=== PATIENT | female | born 1995 | race African-American/Black ===

== ENCOUNTER 2018-07-27 03:05 | Emergency (ER) | payer OTHER ==
[~2018-07-27] VITALS: Ht 162.6 cm; Wt 130.3 kg
[2018-07-27 03:14] VITALS: BP 111/62; PULSE 60; RESP 18; Ht 162.6 cm; Wt 130.3 kg
[2018-07-27] MEDS ORDERED: ERYT1OIN6 RIGHT EYE (05:12)
[2018-07-28] MEDS ORDERED: GENT5DRO28 RIGHT EYE (06:19)
--- NOTE | 2018-07-28 22:53 | ERD ---
ER Documentation Chief Complaint Chief Complaint swelling right upper eyelid, states possible foreign body x 2 days HPI Patient is a 22-year-old female presents to the ER for concerns of right upper eyelid swelling x 2 days. Patient states she feels as if something flew into her eye 2 days ago. Patient denies any visual changes. Patient denies any contact lens use. Patient has no fevers or chills. ROS All systems reviewed and are negative except as per history of present illness. Medications Home Meds Active Scripts Gentamicin Sulfate* (Gentamicin Sulfate* Ophth) 0.3% - 5 Ml Drops, 1 DROP RIGHT EYE Q4 for 7 Days, EA Prov:DAVID CONROY 07/28/18 Erythromycin Base (Erythromycin) 1 Gm Oint...g., 1 APPLIC RIGHT EYE QID for 7 Days Prov:KATHY JACK PA-C 07/27/18 Allergies Allergies: Coded Allergies: No Known Drug Allergies (Verified Allergy, Unknown, 07/27/18) PMhx/Soc Medical and Surgical Hx: pt denies Medical Hx History of Surgery: Yes (C SEC X2 ) Hx Alcohol Use: No Hx Substance Use: Yes (MARIJUANA) Hx Tobacco Use: Yes Smoking Status: Current every day smoker FmHx Family History: No diabetes Physical Exam Vitals Vital Signs Date Temp Pulse Resp B/P (MAP) Pulse Ox O2 O2 Flow FiO2 Time Delivery Rate 07/27/18 97.2 60 18 111/62 100 03:14 (78) Physical Exam GENERAL: Well-developed, well-nourished female. Appears in no acute distress. HEAD: Normocephalic, atraumatic. EYES: Pupils are equally reactive bilaterally. EOMs grossly intact. No conjunctival erythema noted bilaterally. Right upper eyelid noted to have stye which is tender to touch. No surrounding erythema or swelling. No proptosis. No pain with EOMs. ENT: Moist mucous membranes. No uvula deviation. No kissing tonsils. NECK: Supple. No meningismus. Normal range of motion of the neck. LUNG: Clear to auscultation bilaterally. No rhonchi, wheezing, rales or coarse breath sounds. HEART: Regular rate and rhythm. No murmurs, rubs or gallops. EXTREMITIES: Equal pulses bilaterally. No peripheral clubbing, cyanosis or edema. No unilateral leg swelling. NEUROLOGIC: Alert and oriented. Moving all four extremities without any difficulty. Normal speech. Steady gait. SKIN: Normal color. Warm and dry. No rashes or lesions. Procedures/MDM MEDICAL DECISION MAKING: This is a 22-year-old female presents the ER for concerns of right upper eyelid swelling x2 days.. Vital signs were reviewed. Patient was afebrile. Physical exam findings are concerning for a stye. Patient will be discharged home with a prescription for erythromycin ointment. Patient advised to perform warm compresses. Low suspicion for deep space infection, bacterial conjunctivitis, corneal ulcer, glaucoma, periorbital cellulitis, orbital cellulitis, hordeolum, dacrocystitis. Patient was nontoxic, [id number] prior to discharge. PRESCRIPTIONS: Erythromycin ointment DISCHARGE: At this time, patient is stable for discharge and outpatient management. Supportive measures were discussed with patient including warm/cool compresses. Patient advised not to wear contact lenses or eye makeup. I have instructed the patient to follow-up with his/her primary care physician in 1-2 days. I have discussed with the patient the possibility of needing to see an internal control specialist for further workup if symptoms persist. I have instructed the patient to promptly return to the ER for any new or worsening symptoms including increased pain, fever, swelling, redness, warmth, nausea, vomiting, . The patient and/or family expressed understanding of and agreement with this plan. All questions were answered. Home care instructions were provided. Disclaimer: Inadvertent spelling and grammatical errors are likely due to EHR/dictation software use and do not reflect on the overall quality of patient care. Also, please note that the electronic time recorded on this note does not necessarily reflect the actual time of the patient encounter. Departure Diagnosis: Primary Impression: Stye Laterality: right Eyelid: upper Qualified Codes: H00.011 - Hordeolum externum right upper eyelid Patient Instructions: Sty Referrals: COMM[facility] YOU HAVE RECEIVED A MEDICAL SCREENING EXAM AND THE RESULTS INDICATE THAT YOU DO NOT HAVE A CONDITION THAT REQUIRES URGENT TREATMENT IN THE EMERGENCY DEPARTMENT. FURTHER EVALUATION AND TREATMENT OF YOUR CONDITION CAN WAIT UNTIL YOU ARE SEEN IN YOUR DOCTORS OFFICE WITHIN THE NEXT 1-2 DAYS. IT IS YOUR RESPONSIBILITY TO MAKE AN APPOINTMENT FOR FOLOW-UP CARE. IF YOU HAVE A PRIMARY DOCTOR --you should call your primary doctor and schedule an appointment IF YOU DO NOT HAVE A PRIMARY DOCTOR YOU CAN CALL OUR PHYSICIAN REFERRAL HOTLINE AT IF YOU CAN NOT AFFORD TO SEE A PHYSICIAN YOU CAN CHOSE FROM THE FOLLOWING [facility] [address] [facility] [address] [facility] [address] [facility] [address] [facility] [address] [facility]. [facility] [address] [facility]. [facility] YOU HAVE RECEIVED A MEDICAL SCREENING EXAM AND THE RESULTS INDICATE THAT YOU DO NOT HAVE A CONDITION THAT REQUIRES URGENT TREATMENT IN THE EMERGENCY DEPARTMENT. FURTHER EVALUATION AND TREATMENT OF YOUR CONDITION CAN WAIT UNTIL YOU ARE SEEN IN YOUR DOCTORS OFFICE WITHIN THE NEXT 1-2 DAYS. IT IS YOUR RESPONSIBILITY TO MAKE AN APPOINTMENT FOR FOLOW-UP CARE. IF YOU HAVE A PRIMARY DOCTOR --you should call your primary doctor and schedule and appointment IF YOU DO NOT HAVE A PRIMARY DOCTOR YOU CAN CALL OUR PHYSICIAN REFERRAL HOTLINE AT . IF YOU CAN NOT AFFORD TO SEE A PHYSICIAN YOU CAN CHOSE FROM THE FOLLOWING [facility] INSTITUTIONS: [facility] [place] [address] [place] [address] [facility] [address] [place] [address] [facility] [address] [place] [address] Additional Instructions: Call your primary care doctor TOMORROW for an appointment during the next 1-2 days.See the doctor sooner or return here if your condition worsens before your appointment time. KATHY JACK PA-C July 28, 2018 22:53
== END 2018-07-27 05:18 | disposition home or self-care (01) ==
LOC: FTE 03:05
DX: H00.011 Hordeolum externum right upper eyelid (principal)
CPT/HCPCS: 99283

== ENCOUNTER 2018-07-28 05:36 | Emergency (ER) | payer OTHER ==
[~2018-07-28] VITALS: Ht 162.6 cm; Wt 130.0 kg
[~2018-07-28 05:36] MED LIST: ERYT1OIN6 RIGHT EYE
[2018-07-28 05:38] VITALS: BP 147/86; PULSE 72; RESP 17; Ht 162.6 cm; Wt 130.0 kg
[2018-07-28] MEDS ORDERED: GENT5DRO28 RIGHT EYE (06:19)
--- NOTE | 2018-07-28 06:22 | ERD ---
ER Documentation Chief Complaint Chief Complaint WORSENING RT EYE SWELLING X2 DAYS, SEEN HERE YESTERDAY FOR SAME HPI 22 year old female presents complaining of right eye pain and swelling. Patient states that approximately 2 to 3 days ago she had something "flew into her eye." She states she washed it out and has no more foreign body sensation. However, since then, she has had swelling of her right upper eyelid. She was evaluated yesterday and given some "paste", but this was not helping. She returns to the emergency department today complaining of increasing swelling and pain to her right eye. She reports no visual acuity changes. She reports no fevers or chills. ROS All systems reviewed and are negative except as per history of present illness. Medications Home Meds Active Scripts Gentamicin Sulfate* (Gentamicin Sulfate* Ophth) 0.3% - 5 Ml Drops, 1 DROP RIGHT EYE Q4 for 7 Days, EA Prov:DAVID CONROY 07/28/18 Erythromycin Base (Erythromycin) 1 Gm Oint...g., 1 APPLIC RIGHT EYE QID for 7 Days Prov:KATHY JACK PA-C 07/27/18 Allergies Allergies: Coded Allergies: No Known Drug Allergies (Verified Allergy, Unknown, 07/27/18) PMhx/Soc History of Surgery: Yes (C SEC X2 ) Hx Alcohol Use: No Hx Substance Use: Yes (MARIJUANA) Hx Tobacco Use: Yes Smoking Status: Current every day smoker Physical Exam Vitals Vital Signs Date Temp Pulse Resp B/P (MAP) Pulse Ox O2 O2 Flow FiO2 Time Delivery Rate 07/28/18 97.1 72 17 147/86 99 05:38 (106) Physical Exam General: Well-developed well-nourished in no distress HEENT: No facial cellulitis or evidence of abscess. Eye: Visual acuity is normal bilaterally lids lashes and lacrimal ducts on the left side are normal. On the right side, she has a stye without obvious abscess. Conjunctive are normal bilaterally extraocular wounds are intact there is no proptosis. Pupils are midrange equal round reactive to light. There is no foreign body noted even with inversion of the eyelid on the right side. Procedures/MDM Patient was taken to a room, seen and examined Medical decision making: Otherwise healthy female presents with a stye. Patient appears clinically well and nontoxic I will be changing antibiotics, but the patient appears to be appropriate for outpatient supportive care. Departure Diagnosis: Primary Impression: Stye Condition: Stable Patient Instructions: Sty Additional Instructions: Return here if not better in the next 2 days or if there is any worsening DAVID CONROY July 28, 2018 06:22
== END 2018-07-28 07:10 | disposition home or self-care (01) ==
LOC: FTE 05:36
DX: H00.013 Hordeolum externum right eye, unspecified eyelid (principal); F17.210 Nicotine dependence, cigarettes, uncomplicated
CPT/HCPCS: 99283